=== PATIENT | female | born 2000 | race Caucasian/White ===

== ENCOUNTER → 2019-04-03 13:15 | Outpatient (BNVA) | payer BC, SELFPAY | PROVIDERS: Family Provider Pediatrics Adolescent Medicine; PCP Family Medicine; Visit Provider Nurse Practitioner Family | DX: J02.9 Acute pharyngitis, unspecified (principal); J01.10 Acute frontal sinusitis, unspecified | CPT/HCPCS: 87081; 87880 ==

== ENCOUNTER → 2019-12-07 10:50 | Outpatient (BNVA) | payer BC, SELFPAY | PROVIDERS: Family Provider Pediatrics Adolescent Medicine; PCP Family Medicine; Visit Provider Obstetrics & Gynecology | DX: N64.3 Galactorrhea not associated with childbirth (principal) | CPT/HCPCS: 84146; 84443 ==

== ENCOUNTER 2021-04-17 02:08 | Inpatient (IN) | payer OTHER, SELFPAY ==
[2021-04-17] VITALS (8 sets, daily range): BP systolic 118–131; BP diastolic 62–86; PULSE 99–123; RESP 16–18; TEMP 37.1–39.3; O2SAT 97–100; BMI 26.6
--- NOTE | 2021-04-17 02:53 | XRR_ITS ---
PROCEDURE INFORMATION: Exam: XR Chest Exam date and time: 04/17/2021 2:53 AM Age: 20 years old Clinical indication: Fever; Additional info: Fever, leukopenia TECHNIQUE: Imaging protocol: XR of the chest. Views: 1 view. COMPARISON: No relevant prior studies available. FINDINGS: Lungs: No CHF/pulmonary edema. Visible lungs appear essentially clear. Pleural spaces: No visible pneumothorax. No definite pleural fluid. Heart/Mediastinum: Heart size is within normal limits. Bones/joints: No significant acute finding. XR/XR chest 1V portable [id number] IMPRESSION: 1. Essentially unremarkable single view chest. 2. Other findings discussed above.
[2021-04-17 03:25] LABS: Basophils % 0.7 %; Eosinophils # 0.1 10^3/uL (0.0-0.8); Eosinophils % 9.6 %; Hematocrit 34.3 % (37.0-47.0); Hemoglobin 11.3 g/dL (11.5-15.3); Lymphocytes # 1.1 10^3/uL (0.8-4.8); Lymphocytes % 79.3 %; Mean Corpuscular HGB Conc 32.9 g/dL (30.0-36.0); Mean Corpuscular Hemoglobin 27.5 pg (28.0-34.0); Mean Corpuscular Volume 83.5 fl (81-99); Mean Platelet Volume 9.4 fL (7.4-10.4); Monocytes # 0.1 10^3/uL (0.2-0.9); Monocytes % 8.9 %; Neutrophils % 1.5 %; Nucleated Red Blood Cells % 0 %; Platelet Count 148 10^3/cmm (130-400); Red Blood Count 4.11 10^6/uL (4.1-5.3); Red Cell Distribution Width 16.3 % (12.1-15.1); White Blood Count 1.4 10^3/uL (4.0-10.0)
[2021-04-17 03:28] LABS: Neutrophils # 0.02 10^3/uL (1.8-7.7)
[2021-04-17 03:44] LABS: HCG, Serum Qual Negative (Negative)
[2021-04-17] MEDS: piperacillin-tazobactam 3.375 GM in sodium chloride 0.9% (plus) 50 ML IV ×2 (03:44→10:44)
[2021-04-17] MEDS: sodium chloride 0.9% 1,000 ML 999 ML IV (03:44)
--- NOTE | 2021-04-17 03:44 | W.ED.FEVER ---
HPI - Fever General: Chief Complaint: Fever Stated Complaint: 14 Last Day Chemo\High Fever 102 Time Seen by Provider: 04/17/21 02:23 History of Present Illness: HPI Narrative: 20-year-old female who was on methotrexate recently for molar . She has had problems with neutropenia following. She presents with a fever. She says she felt well yesterday, but last night began to run a temperature. Temp was as high as 102. No other real symptoms. She was told if she had a fever given her neutropenia to be evaluated in the ER. MD elicited complaint: fever Pertinent past history: immunosuppression Onset (ago): hour(s) Associated symptoms: Reports chills; Deny abdominal pain, flank pain, chest pain, cough, diarrhea, headache(s), rash, rhinorrhea, short of breath, sore throat or vomiting Review of Systems Const: Reports: chills Card: Denies: chest pain Resp: Denies: dyspnea, productive cough or non-productive cough GI: Denies: abdominal pain, vomiting or diarrhea : Denies: flank pain Neuro: Denies: headache(s) PFSH ED PFSH: Surgical History History of wisdom tooth extraction (~2018) Family History Grandfather Diabetes maternal Social History Smoking and tobacco status: never smoked Alcohol intake: never Physical Exam Const: GENERAL APPEARANCE: cooperative and comfortable; not frail appearing HENMT: COMMON NORMALS: normocephalic and atraumatic HEAD & SCALP: normocephalic and atraumatic FACE & SINUS: normal facial exam Eye: COMMON NORMALS: Equal, round and reactive pupils present and EOMs intact bilaterally PUPIL: Yes Equal, round and reactive pupils present Chest: COMMONS NORMALS: normal inspection of the chest Resp: COMMON NORMALS: normal respiratory effort, No retractions and clear to auscultation bilaterally AUSCULTATION: clear to auscultation bilaterally Cardio: COMMON NORMALS: regular rate and regular rhythm RATE: regular rate RHYTHM: regular rhythm GI: COMMON NORMALS: Normal to inspection, nondistended, normoactive bowel sounds present, Soft to palpation and non-tender PALPATION: Yes Soft to palpation Skin: COMMON NORMALS: no rashes or lesions noted GENERAL SKIN EXAM: no rashes or lesions noted Course Consultations: Consultation #1: Anuj Vital Signs: Vital signs: Vital Signs Temperature 99.8 F H 04/18/21 21:53 Pulse Rate 117 H 04/18/21 21:53 Respiratory Rate 18 04/18/21 21:53 Blood Pressure 112/74 04/18/21 21:53 Pulse Oximetry 99 04/18/21 21:53 MDM - Fever MDM Narrative Medical decision making narrative: ANC is 0.02. Temp is improved at this point. Covid 19 PCR is negative. Essentially normal exam. Laboratory otherwise stable. Blood cultures pending. She'll have to be admitted for broad spectrum abx for neutropenic fever until bc are resulted. Hospitalists notified. Lab Data Result diagrams: 04/18/21 04:58 04/18/21 04:58 Labs: Lab Results 04/17/21 04/17/21 04/17/21 03:15 03:15 03:15 WBC 1.4 10^3/uL L 10^3/uL (4.0-10.0) RBC 4.11 10^6/uL 10^6/uL (4.1-5.3) Hgb 11.3 g/dL L g/dL (11.5-15.3) Hct 34.3 % L % (37.0-47.0) MCV 83.5 fl fl (81-99) MCH 27.5 pg L pg (28.0-34.0) MCHC 32.9 g/dL g/dL (30.0-36.0) RDW 16.3 % H % (12.1-15.1) Plt Count 148 10^3/cmm 10^3/cmm (130-400) MPV 9.4 fL fL (7.4-10.4) Neut % (Auto) 1.5 % % Lymph % (Auto) 79.3 % % [place] % (Auto) 8.9 % % Eos % (Auto) 9.6 % % Baso % (Auto) 0.7 % % Neut # (Auto) 0.02 10^3/uL L* 10^3/uL (1.8-7.7) Lymph # (Auto) 1.1 10^3/uL 10^3/uL (0.8-4.8) [place] # (Auto) 0.1 10^3/uL L 10^3/uL (0.2-0.9) Eos # (Auto) 0.1 10^3/uL 10^3/uL (0.0-0.8) Baso # (Auto) 0.0 10^3/uL 10^3/uL (0.0-0.1) Nucleated RBC % (auto) 0 % % Nucleated RBCs # 0.0 /100WBC /100WBC Sodium 137 mmol/L mmol/L (136-145) Potassium 3.5 mmol/L mmol/L (3.5-5.1) Chloride 100 mmol/L mmol/L (98-107) Carbon Dioxide 22 mmol/L mmol/L (22-29) Anion Gap 18.5 (5-19) BUN 5 mg/dL L mg/dL (6-20) Creatinine 0.9 mg/dL mg/dL (0.5-0.9) GFR Calculation 79.0 mL/min L mL/min (90-130) Glucose 100 mg/dL mg/dL (65-115) Calculated Osmolality 281 mOsm/kg L mOsm/kg (285-295) Lactate 1.4 mmol/L mmol/L (0.5-2.2) Calcium 9.0 mg/dL mg/dL (8.5-10.5) Total Bilirubin 0.7 mg/dL mg/dL (0.15-1.2) AST 11 U/L U/L (0-32) ALT 15 U/L U/L (0-33) Alkaline Phosphatase 110 IU/L H IU/L (35-105) C-Reactive Protein 52.6 mg/L H mg/L (0.0-4.9) Total Protein 6.8 g/dL g/dL (6.6-8.7) Albumin 4.3 g/dL g/dL (3.5-5.2) Globulin 2.5 g/dL g/dL (1.3-4.6) Procalcitonin 0.05 ng/mL ng/mL (0-0.5) HCG, Qual Urine Color Urine Appearance Urine pH Ur Specific Welch Urine Protein Urine Glucose (UA) Urine Ketones Urine Blood Urine Nitrate Urine Bilirubin Urine Urobilinogen Ur Leukocyte Esterase Urine RBC Urine WBC Ur Squamous Epith Cells Amorphous Sediment Urine Bacteria Urine Mucus Coronavirus 229E (PCR) SARS-CoV-2 (PCR) 04/17/21 04/17/21 04/17/21 03:15 03:15 03:45 WBC RBC Hgb Hct MCV MCH MCHC RDW Plt Count MPV Neut % (Auto) Lymph % (Auto) [place] % (Auto) Eos % (Auto) Baso % (Auto) Neut # (Auto) Lymph # (Auto) [place] # (Auto) Eos # (Auto) Baso # (Auto) Nucleated RBC % (auto) Nucleated RBCs # Sodium Potassium Chloride Carbon Dioxide Anion Gap BUN Creatinine GFR Calculation Glucose Calculated Osmolality Lactate Calcium Total Bilirubin AST ALT Alkaline Phosphatase C-Reactive Protein Total Protein Albumin Globulin Procalcitonin HCG, Qual Negative (Negative) Urine Color Yellow (Yellow) Urine Appearance Sl hazy (CLEAR) Urine pH 7 (5-7) Ur Specific Welch 1.015 (1.005-1.030) Urine Protein Neg (Negative) Urine Glucose (UA) Norm (Normal) Urine Ketones 1+ H (Negative) Urine Blood 3+ H (Negative) Urine Nitrate Negative (Negative) Urine Bilirubin Neg (Negative) Urine Urobilinogen Norm mg/dL mg/dL (Negative) Ur Leukocyte Esterase Negative (Negative) Urine RBC 10-15 /hpf H /hpf (0-2) Urine WBC 0-4 /hpf H /hpf (0-5) Ur Squamous Epith Cells 25-40 /hpf H /hpf (0-5) Amorphous Sediment Not Reportable Urine Bacteria 4+ /hpf H /hpf (NONE) Urine Mucus 4+ /hpf /hpf Coronavirus 229E (PCR) Not detected (NOT DETECT) SARS-CoV-2 (PCR) Not detected (NOT DETECT) Discharge Plan Discharge Patient Disposition: Admitted As Inpatient Admit Provider: Prateek Verma Clinical Impression: Neutropenic fever Condition: Stable Coding Level of Care Code ED Cell Stripper Final for Kehindeg Fwd Exam Comprehensive
[2021-04-17 03:47] LABS: Alanine Aminotransferase 15 U/L (0-33); Albumin Level 4.3 g/dL (3.5-5.2); Alkaline Phosphatase 110 IU/L (35-105); Anion Gap 18.5 (5-19); Aspartate Amino Transferase 11 U/L (0-32); Blood Urea Nitrogen 5 mg/dL (6-20); C Reactive Protein 52.6 mg/L (0.0-4.9); Carbon Dioxide 22 mmol/L (22-29); Chloride 100 mmol/L (98-107); Globulin 2.5 g/dL (1.3-4.6); Glucose 100 mg/dL (65-115); Osmolality Calculated 281 mOsm/kg (285-295); Potassium 3.5 mmol/L (3.5-5.1); Sodium 137 mmol/L (136-145); Total Bilirubin 0.7 mg/dL (0.15-1.2); Total Protein 6.8 g/dL (6.6-8.7)
[2021-04-17 03:48] LABS: Lactate (Lactic Acid level) 1.4 mmol/L (0.5-2.2)
[2021-04-17 03:53] LABS: Procalcitonin 0.05 ng/mL (0-0.5)
[2021-04-17 04:06] LABS: Add Urine Microscopic? YES; Bilirubin Urine Neg (Negative); Blood Urine 3+ (Negative); Glucose Urine UA Norm (Normal); Ketones Urine 1+ (Negative); Leukocyte Esterase Urine Negative (Negative); Nitrate Urine Negative (Negative); Protein Urine Neg (Negative); Specific Gravity, Urine 1.015 (1.005-1.030); Urine Appearance SL Hazy (CLEAR); Urine Color Yellow (Yellow); Urobilinogen Urine Norm (Negative); pH Urine 7 (5-7)
[2021-04-17 04:09] LABS: Add Urine Culture? No; Bacteria Urine 4+ /hpf; Mucus Urine 4+ /hpf; Squamous Epithelial Cell Urine 25-40 /hpf (0-5); WBC Urine 0-4 /hpf (0-5)
[2021-04-17 05:05] LABS: Adenovirus Not Detected (NOT DETECT); Chlamydia Pneumoniae Not Detected (NOT DETECT); Coronavirus 229E,HKU1,NL63,OC4 Not Detected (NOT DETECT); Human Metapneumovirus Not Detected (NOT DETECT); Human Rhinovirus/Enterovirus Not Detected (NOT DETECT); Influenza A Not Detected (NOT DETECT); Influenza A H1 Not Detected (NOT DETECT); Influenza A H1-2009 Not Detected (NOT DETECT); Influenza A H3 Not Detected (NOT DETECT); Influenza B Not Detected (NOT DETECT); Mycoplasma Pneumoniae Not Detected (NOT DETECT); Parainfluenza Virus Type 1 Not Detected (NOT DETECT); Parainfluenza Virus Type 2 Not Detected (NOT DETECT); Parainfluenza Virus Type 3 Not Detected (NOT DETECT); Parainfluenza Virus Type 4 Not Detected (NOT DETECT); Respiratory Syncytial Virus A Not Detected (NOT DETECT); Respiratory Syncytial Virus B Not Detected (NOT DETECT); SARS-COV-2 Not Detected (NOT DETECT)
[2021-04-17] MEDS: vancomycin 1,000 MG in sodium chloride 0.9% 250 ML 250 MG IV (06:09)
[2021-04-17] MEDS: diphenhydrAMINE 50 mg/mL SDV 1mL 25 MG IVP (07:17)
[2021-04-17] MEDS: sodium chloride 0.9% 1,000 ML 100 ML IV ×2 (07:18→17:58)
--- NOTE | 2021-04-17 07:19 | US_ITS ---
NOTE: Report was unsigned for reason: Order was edited. Original Signature date and time was: 04/17/21 @0824 WS: [id number] TRANSVAGINAL PELVIC ULTRASOUND HISTORY: molar COMPARISON: None available. Uterus: 7.6 cm x 4.1 cm x 3.2 cm. Normal size anteverted uterus. No fibroid or mass. Endometrium: 0.6 cm. Normal thin endometrium. Right ovary: 3.5 cm x 2.1 cm x 1.6 cm. Normal size and vascularity, no cystic or solid masses. Numerous small follicles within the RIGHT ovary. The largest measures 2.0 maximum diameter. Left ovary: 2.7 cm x 2.4 cm x 1.5 cm. Normal size and vascularity, no cystic or solid masses. Numerous small follicles. No mass. No free fluid. [facility] US/US transvaginal [id number] IMPRESSION: Normal transvaginal pelvic ultrasound.
--- NOTE | 2021-04-17 07:20 | PC.NURSE ---
NURSE NOTIFIED THAT PATIENT FEELS LIKE SHE IS HAVING AN ALLERGIC REACTION TO VANC. NURSE ENTERED ROOM AND VANC WAS FINISHED. PATIENT DISCONNECTED FROM LINE. PROVIDER NOTIFIED. BENADRYL ORDERED.
--- NOTE | 2021-04-17 10:48 | P.HP_ITS ---
Providers/Chief Complaint Chief Complaint: 14 Last Day Chemo\High Fever 102 History of Present Illness Nata Huff is a 20 year old female who presents to ER for fever. PMH is significant for molar for which she recently completed 7 weeks of chemo for on 04/07/21 and is now neutropenic. She resides in [place] and arrived to [place] via car yesterday to visit family. Her fever started around 9pm last night and was 101.4 and got as high as 102. She did not try any anti-pyretics for the fever. She states that she felt some chills last night before her fever started. She felt tired this morning but otherwise denies chest pain, SOB, abdominal pain, cough, diarrhea, constipation, or dysuria. She endorses some sore throat but states that is due to mouth sores from chemo. She states she has been eating less and taking only a few sips of water lately. In the ER today, temp was 99.3. Heart rate was tachycardic. She was given one dose of Vanc and one dose of Zosyn in the ER. CXR and pelvic U/S were unremarkable. She is vaccinated against COVID and denies past history of COVID or recent COVID contacts. Review of Systems General: Reports: 10 or more systems reviewed and unremarkable except in HPI and below Const: Reports: fever(s) and chills Eyes: Denies: change in vision ENMT: Reports: oral sores Card: Denies: chest pain Resp: Denies: dyspnea GI: Denies: abdominal pain : Denies: flank pain Musc: Denies: neck pain Skin/Breast: Denies: rash Neuro: Denies: headache(s) Psych: Denies: anxiety Endo: Denies: polyuria Rogelio/Lymph: Denies: easy bruising All/Imm: Denies: urticaria Medications/Allergies Home Medications Medication Instructions Recorded Confirmed Last Taken Type etonogestrel 0.12 mg-ethinyl 1 vag ring VAGINAL .once every 28 12/07/19 12/07/19 Unknown Rx estradiol 0.015 mg/24 hr vaginal days #1 each ring Allergies Allergy/AdvReac Type Severity Reaction Status Date / Time No Known Allergies Allergy Verified 12/07/19 10:21 PFSH Acute PFSH: Surgical History History of wisdom tooth extraction (~2018) Family History Grandfather Diabetes maternal Social History Smoking and tobacco status: never smoked Alcohol intake: never Vitals/I&O/Wt Last Vital Signs Temp 99.3 F 04/17/21 06:30 Pulse 113 H 04/17/21 10:45 Resp 18 04/17/21 10:45 BP 123/66 04/17/21 10:45 Pulse Ox 100 04/17/21 10:45 04/16/21 04/17/21 04/17/21 22:59 06:59 14:59 Intake Total 1300 / 1300 Balance 1300 / 1300 Weight last 48 hrs Weight 74.843 kg Physical Exam Narrative: EXAM NARRATIVE: General: white female in no acute distress HEENT: normocephalic, atraumatic, pupils equally round Neck: supple, no lymphadenopathy, no thyromegaly, oral sores present Cardiovascular: RRR without murmurs Lungs: clear bilaterally, no wheezes Abdomen: soft, nontender, nondistended, positive bowel sounds deferred Extremities: no cyanosis, clubbing, or edema Skin: no rash Neuro: no obvious focal deficits Data : 04/17/21 03:15 04/17/21 03:15 Micro: Microbiology 04/17/21 03:15 Blood Culture - Preliminary Blood SPECIMEN COLLECTED 04/17/21 03:45 Blood Culture - Preliminary Blood SPECIMEN COLLECTED Other data: CRP 52.6 WBC 1.4 with ANC 0.02 CXR and pelvic U/S unremarkable Qualitative HCG negative Procalcitonin normal UA 1+ ketones, 3+ blood, 10-15 RBC, 0-4 WBC, 4+ bacteria, 25-40 SEC. Suspect likely contaminant COVID PCR negative A&P Assessment and plan (1) Neutropenic fever: Continue vancomycin and Zosyn Blood cultures were drawn on admission Transvaginal pelvic ultrasound was normal, chest x-ray normal, urinalysis contaminated but no obvious infection Etiology is likely methotrexate she was on. From history it appears she got 7 doses of methotrexate with the last being 10 to 11 days ago. We will give 1 dose of Neupogen Continue to follow counts closely, repeat tomorrow Regular admission Status: Acute (2) Molar : Qualitative hCG negative, transvaginal pelvic ultrasound normal. I suspect she has completed an adequate treatment for her molar . Gynecology will review as well. Status: Acute Additional A&P Information Full code Low risk for DVT Attestations Medical Necessity Statement*: Will need greater than 2 midnight stay for evaluation and treatment of neutropenic fever Time Spent in Patient Care: Greater than 35 minutes Coding Level of Care Code Acute Concrete Handler for [facility] Diagnoses Neutropenic fever D70.9; R50.81 Molar O02.0
--- NOTE | 2021-04-17 12:00 | PC.PHAR ---
pt states she she takes no rx medications-pt states she has been using magic mouthwash prn-pt states she was taking some kind of chemo states she started taking dec 31 2020 to apr 07 2021 states she finished on the
--- NOTE | 2021-04-17 12:54 | PC.NURSE ---
PATIENT ONLY HAD ONE AVAILABLE IV ACCESS. THIS NURSE, NURSE RESIDENT, AND SECOND NURSE TRIED TO ACCESS 2ND IV. PATIENT REFUSED FOR NURSES TO TRY AGAIN. PATIENT CURRENTLY HAS 2 SEPARATE FLUIDS RUNNING THRU ACCESSED IV.
[2021-04-17] MEDS: cefepime 2,000 MG in sodium chloride 0.9% (plus) 50 ML 100 MG IV (12:58)
--- NOTE | 2021-04-17 14:33 | PC.NURSE ---
PATIENT RESTING IN BED. VISITOR STATED SHE HAD JUST FALLEN ASLEEP.
--- NOTE | 2021-04-17 17:36 | PC.NURSE ---
publications writer went over meds with patient that were scheduled. publications writer told patient that she has vancomycin scheduled for 1800. patient said she is very hesitant to take that med because it made her red and she had swelling in her face from it. 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 patient currently has some swelling noted to bilateral eyes. Sales Product Manager notified Dr Verma, per Dr Verma, discontinue vancomycin order.
[2021-04-17] MEDS: cefepime 2,000 MG in sodium chloride 0.9% (plus) 50 ML 200 MG IV (19:55)
[2021-04-17] MEDS: acetaminophen 325 mg Tablet 650 MG PO (19:56)
--- NOTE | 2021-04-17 21:55 | PC.NURSE ---
i reported high temp and high pulse 102.7 and 120 to nurse
--- NOTE | 2021-04-17 23:07 | PC.NURSE ---
1930 Family at bedside visiting. No facial edema or redness as noted in report from off going nurse. Nurse said it was improving after Vancomycin was given earlier today.
--- NOTE | 2021-04-17 23:09 | PC.NURSE ---
2130 Pt up to shower without difficulty per self. IV secured for shower. Tolerates well. No distress.
--- NOTE | 2021-04-17 23:10 | PC.NURSE ---
2215 Milk given per pt request.
[2021-04-18] VITALS (7 sets, daily range): BP systolic 108–138; BP diastolic 60–84; PULSE 107–124; RESP 15–18; TEMP 36.8–37.7; O2SAT 96–100
--- NOTE | 2021-04-18 00:03 | PC.NURSE ---
reported high pulse 108 to nurse
--- NOTE | 2021-04-18 01:17 | PC.NURSE ---
0115 Resting in bed on left side. No distress.
--- NOTE | 2021-04-18 02:20 | PC.NURSE ---
0215 Resting in bed. Turned to right side. No distress.
[2021-04-18] MEDS: cefepime 2,000 MG in sodium chloride 0.9% (plus) 50 ML 200 MG IV ×3 (02:51→21:43)
[2021-04-18] MEDS: sodium chloride 0.9% 1,000 ML 100 ML IV ×3 (05:00→21:43)
--- NOTE | 2021-04-18 05:41 | PC.NURSE ---
0400 Resting in bed. Easily arouses. No requests.
--- NOTE | 2021-04-18 05:42 | PC.NURSE ---
0530 Resting on left side. Denies pain. No requests.
--- NOTE | 2021-04-18 05:50 | PC.NURSE ---
i reported high pulse 124 to nurse
[2021-04-18 06:13] LABS: Basophils % 1.1 %; Eosinophils # 0.2 10^3/uL (0.0-0.8); Eosinophils % 8.2 %; Hemoglobin 10.6 g/dL (11.5-15.3); Lymphocytes # 1.1 10^3/uL (0.8-4.8); Mean Corpuscular HGB Conc 31.2 g/dL (30.0-36.0); Mean Corpuscular Hemoglobin 26.7 pg (28.0-34.0); Mean Corpuscular Volume 85.6 fl (81-99); Mean Platelet Volume 10.1 fL (7.4-10.4); Monocytes # 0.5 10^3/uL (0.2-0.9); Monocytes % 25.5 %; Neutrophils % 2.7 %; Nucleated Red Blood Cells % 0 %; Platelet Count 161 10^3/cmm (130-400); Red Blood Count 3.97 10^6/uL (4.1-5.3); Red Cell Distribution Width 15.8 % (12.1-15.1); White Blood Count 1.8 10^3/uL (4.0-10.0)
[2021-04-18 06:25] LABS: Alanine Aminotransferase 11 U/L (0-33); Albumin Level 3.5 g/dL (3.5-5.2); Alkaline Phosphatase 84 IU/L (35-105); Anion Gap 19.7 (5-19); Aspartate Amino Transferase 12 U/L (0-32); Blood Urea Nitrogen 6 mg/dL (6-20); Calcium 9.4 mg/dL (8.5-10.5); Carbon Dioxide 18 mmol/L (22-29); Chloride 106 mmol/L (98-107); Globulin 2.7 g/dL (1.3-4.6); Glucose 80 mg/dL (65-115); Osmolality Calculated 287 mOsm/kg (285-295); Potassium 3.7 mmol/L (3.5-5.1); Sodium 140 mmol/L (136-145); Total Bilirubin 0.8 mg/dL (0.15-1.2); Total Protein 6.2 g/dL (6.6-8.7)
[2021-04-18 08:39] LABS: Neutrophils # 0.05 10^3/uL (1.8-7.7); Slide Review Slide Review Perform
--- NOTE | 2021-04-18 09:14 | PM.PN ---
Documented by User: SHALOM Whittaker STDNT 04/18/21 09:25 Subjective Subjective: Interval history: Nata had some fever last night with elevated heart rate. She tells me that her heart rate would usually increase the week after she got each methotrexate dose when she would feel unwell, but she appears asymptomatic from this currently. She denies chest pain, fevers, chills, or SOB. Vitals/I&O/Wt Last Vital Signs Temp 98.5 F 04/18/21 08:58 Pulse 107 H 04/18/21 08:00 Resp 16 04/18/21 08:00 BP 108/71 04/18/21 08:00 Pulse Ox 96 04/18/21 08:00 04/17/21 04/18/21 04/18/21 22:59 06:59 14:59 Intake Total 1550 / 2850 1530 / 4380 240 / 240 Output Total 800 / 800 Balance 1550 / 2850 730 / 3580 240 / 240 Weight last 48 hrs Weight 73.028 kg Weight 74.843 kg Physical Exam Narrative: EXAM NARRATIVE: General: in no acute distress, pleasant HEENT: normocephalic, atraumatic, pupils equally round Neck: supple, no thyromegaly, no lymphadenopathy Cardiovascular: increased rate with regular rhythm, no murmurs Lungs: clear bilaterally, no wheezes Abdomen: soft, nondistended, nontender, positive bowel sounds Extremities: no cyanosis, clubbing, or edema Skin: no rash Neuro: no obvious focal deficits Data : 04/18/21 04:58 04/18/21 04:58 Other Labs: WBC 1.8 from 1.4 ANC 0.05 from 0.02 Blood cultures NGTD Micro: Microbiology 04/17/21 03:15 Blood Culture - Preliminary Blood NEGATIVE TO DATE 04/17/21 03:45 Blood Culture - Preliminary Blood NEGATIVE TO DATE A&P Assessment and plan (1) Neutropenic fever: Status: Acute (2) Molar : Status: Acute Plan (1) Neutropenic fever: ? ? ? Continue cefepime Blood cultures drawn on admission negative to date Transvaginal pelvic ultrasound was normal, chest x-ray normal, urinalysis contaminated but no obvious infection Etiology is likely methotrexate she was on.? From history it appears she got 7 doses of methotrexate with the last dose on 04/07/21. 1 dose of 300mcg Neupogen given yesterday. ANC increased from 0.02 to 0.05. 1 dose of 480mcg Neupogen will be given today. Continue to follow counts closely, repeat tomorrow Regular admission ?Status:?Acute (2) Molar : ? ? ? Qualitative hCG negative, transvaginal pelvic ultrasound normal.? I suspect she has completed an adequate treatment for her molar .? Gynecology will review as well. ?Status:?Acute Full code Low risk for DVT Coding Level of Care Code Acute Med Spa Manager for [facility] Diagnoses Neutropenic fever D70.9; R50.81 Molar O02.0 Documented by User: Prateek Verma MD 04/18/21 12:45 Subjective Subjective: Interval history: Nata had some fever last night with elevated heart rate. She tells me that her heart rate would usually increase the week after she got each methotrexate dose when she would feel unwell, but she appears asymptomatic from this currently. She denies chest pain, fevers, chills, or SOB. Agree with above. No changes needed. Medications: Reviewed: Yes Physical Exam Narrative: EXAM NARRATIVE: General: in no acute distress, pleasant HEENT: normocephalic, atraumatic, pupils equally round Neck: supple, no thyromegaly, no lymphadenopathy Cardiovascular: increased rate with regular rhythm, no murmurs Lungs: clear bilaterally, no wheezes Abdomen: soft, nondistended, nontender, positive bowel sounds Extremities: no cyanosis, clubbing, or edema Skin: no rash Neuro: no obvious focal deficits I examined the patient as well. No changes are needed as noted above. Data : 04/18/21 04:58 04/18/21 04:58 A&P Assessment and plan (1) Neutropenic fever: Status: Acute (2) Molar : Status: Acute Plan (1) Neutropenic fever: ? ? ? Continue cefepime Blood cultures drawn on admission negative to date Transvaginal pelvic ultrasound was normal, chest x-ray normal, urinalysis contaminated but no obvious infection Etiology is likely methotrexate she was on.? From history it appears she got 7 doses of methotrexate with the last dose on 04/07/21. 1 dose of 300mcg Neupogen given yesterday. ANC increased from 0.02 to 0.05. 1 dose of 480mcg Neupogen will be given today. Appreciate gynecologic review/consult Continue to follow counts closely, repeat tomorrow Regular admission ?Status:?Acute (2) Molar : ? ? ? Qualitative hCG negative, transvaginal pelvic ultrasound normal.? I suspect she has completed an adequate treatment for her molar .? Gynecology will review as well. ?Status:?Acute Full code Low risk for DVT Attestations Medical Necessity Statement*: Needs continued hospitalization for broad-spectrum antibiotics in this patient with neutropenic fever. Coding Level of Care Code Acute Med Spa Manager for [facility] Diagnoses Neutropenic fever D70.9; R50.81 Molar O02.0
--- NOTE | 2021-04-18 10:09 | PM.CONSULT ---
Providers/Reason For Consult Consulting Physician/Specialty*: Dr Rice/ ENVIRONMENTAL MAINTENANCE WORKER Reason for Consult*: history of choriocarcinoma Requesting Physician: Dr. Bradley Attending Physician: Prateek Verma MD History of Present Illness History of Present Illness Nata Huff is a 20 year old female who presented to the ER with complaints of fever and known neutropenia. She reports that she became around 11/12. She was found to have a molar . She had a D&C and serial quant HCG. Her HCG had a katie of 60, but then began rising again. She had a second D&C, but the HCG continued to rise. She was given the diagnosis of persistent trophoblastic disease (choriocarcinoma) and was started on methotrexate in November. She had a nexplanon placed for effective contraception. She received IV infusions, five days per week, every other week, for 7 doses. She reports that after her last treatment, there was a remark made by an employee, that they were surprised that she was given chemo, due to how low her neutrophil count was. Review of Systems General: Reports: 10 or more systems reviewed and unremarkable except in HPI and below Medications/Allergies Home Medications Medication Instructions Recorded Confirmed Last Taken Type Magic Mouthwash See Rx Instructions .ROUTE .COMPLEX 04/17/21 04/17/21 04/16/21 History etonogestrel 68 mg subdermal See Rx Instructions .ROUTE .COMPLEX 04/17/21 04/17/21 Unknown History implant (Nexplanon) Allergies Allergy/AdvReac Type Severity Reaction Status Date / Time No Known Allergies Allergy Verified 04/17/21 12:02 Current Medications Generic Name Dose Route Start Last Admin Trade Name Freq PRN Reason Stop Dose Admin Acetaminophen 650 mg 04/17/21 11:41 04/17/21 19:56 Acetaminophen 325 Mg Tablet PO 650 mg Q6H PRN Administration Mild/Mod Pain Or Temp >/= 101 Sodium Chloride 1,000 mls @ 125 mls/hr 04/17/21 07:04 04/18/21 05:00 Sodium Chloride 0.9% IV 100 mls/hr .Q8H CORTNEY Administration Cefepime HCl 2,000 mg/ Sodium 50 mls @ 100 mls/hr 04/17/21 11:45 04/18/21 03:06 Chloride IV Infused Q8H CORTNEY Infusion Protocol PFSH Acute PFSH: Surgical History History of wisdom tooth extraction (~2018) Family History Grandfather Diabetes maternal Social History Smoking and tobacco status: never smoked Alcohol intake: never Vitals/I&O/Wt Last Vital Signs Temp 98.5 F 04/18/21 08:58 Pulse 107 H 04/18/21 08:00 Resp 16 04/18/21 08:00 BP 108/71 04/18/21 08:00 Pulse Ox 96 04/18/21 08:00 04/17/21 04/18/21 04/18/21 22:59 06:59 14:59 Intake Total 1550 / 2850 1530 / 4380 480 / 480 Output Total 800 / 800 Balance 1550 / 2850 730 / 3580 480 / 480 Weight last 48 hrs Weight 161 lb Weight 165 lb Physical Exam Narrative: EXAM NARRATIVE: The patient appears well today. She states that she is feeling better Const: COMMON NORMALS: no acute distress, average body habitus, patient oriented x3, no limitations, healthy appearing, alert and well nourished GENERAL APPEARANCE: cooperative, comfortable, well kempt and well developed ORIENTATION/CONSCIOUSNESS: Yes awake, Yes oriented to person, Yes oriented to place and Yes oriented to time Resp: COMMON NORMALS: normal respiratory effort EFFORT & INSPECTION: Yes able to speak in complete sentences Neuro: COMMON NORMALS: patient oriented x3 SENSORIUM/ORIENTATION: Yes alert, Yes oriented to person, Yes oriented to place and Yes oriented to time Psych: COMMON NORMALS: mental status grossly normal, Normal thought process present, cooperative, normal affect, speech normal and activity/motor behavior normal APPEARANCE: Yes grossly normal and Yes well kempt ATTITUDE: Yes calm and Yes engaged ACTIVITY/MOTOR BEHAVIOR: Yes appropriate eye contact SPEECH: Yes normal speech THOUGHT PROCESS: Normal thought process present Data : 04/18/21 04:58 04/18/21 04:58 Micro: Microbiology 04/17/21 03:15 Blood Culture - Preliminary Blood NEGATIVE TO DATE 04/17/21 03:45 Blood Culture - Preliminary Blood NEGATIVE TO DATE A&P Assessment and plan (1) Gestational trophoblastic disease: The patient is being managed by hematology. Her HCG is now zero her pelvic ultrasound is normal The patient has an excellent form of contraception She should have twice monthly HCG to monitor treatment. Otherwise, there is nothing further needed from scene painter. Status: Acute Coding Level of Care Code Acute Health Professional for [facility] Diagnoses Gestational trophoblastic disease O01.9
[2021-04-19] VITALS: BP 115/75; PULSE 100; RESP 18; TEMP 37.5; O2SAT 98
[2021-04-19 04:00] VITALS: BP 104/64; PULSE 96; RESP 18; TEMP 37.2; O2SAT 97
[2021-04-19] MEDS: cefepime 2,000 MG in sodium chloride 0.9% (plus) 50 ML 200 MG IV (04:58)
[2021-04-19] MEDS: sodium chloride 0.9% 1,000 ML 125 ML IV (05:04)
[2021-04-19 05:31] LABS: Hematocrit 31.3 % (37.0-47.0); Mean Corpuscular HGB Conc 31.9 g/dL (30.0-36.0); Mean Corpuscular Volume 84.4 fl (81-99); Platelet Count 272 10^3/cmm (130-400); Red Blood Count 3.71 10^6/uL (4.1-5.3); Red Cell Distribution Width 15.7 % (12.1-15.1); White Blood Count 3.9 10^3/uL (4.0-10.0)
[2021-04-19 05:52] LABS: Alanine Aminotransferase 10 U/L (0-33); Albumin Level 3.2 g/dL (3.5-5.2); Alkaline Phosphatase 75 IU/L (35-105); Anion Gap 15.6 (5-19); Aspartate Amino Transferase 14 U/L (0-32); Blood Urea Nitrogen 4 mg/dL (6-20); Calcium 8.2 mg/dL (8.5-10.5); Carbon Dioxide 20 mmol/L (22-29); Chloride 108 mmol/L (98-107); Globulin 2.2 g/dL (1.3-4.6); Glucose 75 mg/dL (65-115); Osmolality Calculated 286 mOsm/kg (285-295); Potassium 3.6 mmol/L (3.5-5.1); Sodium 140 mmol/L (136-145); Total Bilirubin 0.5 mg/dL (0.15-1.2); Total Protein 5.4 g/dL (6.6-8.7)
[2021-04-19 06:55] LABS: Absolute Eosinophils 0.1 10^3/cmm (0.0-0.7); Absolute Segmented Neutrophil 0.4 10/cmm (1.6-7.1); Band Neutrophils Absolute 0.5 10^3/cmm (0.0-1.2); Eosinophils 4 %; Lymphocytes 47 %; Monocytes Absolute 0.5 10^3/cmm (0.1-0.6); Poikilocytosis 1+; Segmented Neutrophils 9 %; Total Cells Counted 100 (0-100)
[2021-04-19 06:56] LABS: Platelet Estimate Normal (Normal)
[2021-04-19 06:57] LABS: Absolute Neutrophil 0.9 10^3/cmm (1.4-6.5)
[2021-04-19 07:46] VITALS: BP 108/69; PULSE 99; RESP 16; TEMP 37; O2SAT 97
--- NOTE | 2021-04-19 10:15 | P.DS_ITS ---
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 She presented with fever, and was found to be significantly neutropenic. According to her she had had some significantly low white blood cell counts while she was receiving methotrexate, and her last methotrexate course was April 07. Although she had fever she had not had cough, dysuria, or any other significant symptoms. Blood cultures were obtained, and she was placed on broad-spectrum antibiotics, ultimately cefepime and admitted to the hospital. Urinalysis, chest x-ray were not revealing. Procalcitonin was normal. Initial neutrophil count was 20. She received Neupogen 2 days in a row, and neutrophil count climbed to approximately 900. She had been afebrile for greater than 24 hours, and it was thought she could be discharged on 5 days of Levaquin with close follow-up. She is to return for any fever. Cultures were negative at time of discharge. Physical Exam Narrative: EXAM NARRATIVE: General exam no distress Neck supple Cardiovascular regular rate and rhythm Lungs clear Abdomen soft Extremities no cyanosis clubbing or edema Discharge Data Studies Completed and Pending Completed Studies During Hospitalization Category Date Time Status XR chest 1V portable [id number] Urgent Exams 04/17/21 02:53 Completed US transvaginal [id number] Stat Ultrasound 04/17/21 07:19 Completed Pending at discharge Category Date Time Status Blood Culture Stat Lab 04/17/21 03:15 Results Radiology Impressions Chest X-Ray 04/17/21 02:53 IMPRESSION: 1. Essentially unremarkable single view chest. 2. Other findings discussed above. Transvaginal US 04/17/21 07:19 IMPRESSION: Normal transvaginal pelvic ultrasound. Laboratory Results WBC 3.9 10^3/uL (4.0-10.0) L 04/19/21 04:23 RBC 3.71 10^6/uL (4.1-5.3) L 04/19/21 04:23 Hgb 10.0 g/dL (11.5-15.3) L 04/19/21 04:23 Hct 31.3 % (37.0-47.0) L 04/19/21 04:23 MCV 84.4 fl (81-99) 04/19/21 04:23 MCH 27.0 pg (28.0-34.0) L 04/19/21 04:23 MCHC 31.9 g/dL (30.0-36.0) 04/19/21 04:23 RDW 15.7 % (12.1-15.1) H 04/19/21 04:23 Plt Count 272 10^3/cmm (130-400) D 04/19/21 04:23 MPV 10.0 fL (7.4-10.4) 04/19/21 04:23 Neut % (Auto) 2.7 % 04/18/21 04:58 Lymph % (Auto) Not Reportable 04/19/21 04:23 [place] % (Auto) Not Reportable 04/19/21 04:23 Eos % (Auto) 8.2 % 04/18/21 04:58 Baso % (Auto) 1.1 % 04/18/21 04:58 Neut # (Auto) Sugar Controller 04/19/21 04:23 Lymph # (Auto) Not Reportable 04/19/21 04:23 [place] # (Auto) Not Reportable 04/19/21 04:23 Eos # (Auto) 0.2 10^3/uL (0.0-0.8) 04/18/21 04:58 Baso # (Auto) 0.0 10^3/uL (0.0-0.1) 04/18/21 04:58 Nucleated RBC % (auto) 0 % 04/18/21 04:58 Total Counted 100 (0-100) 04/19/21 04:23 Atypical Lymphs % 5.0 % (0-5) 04/19/21 04:23 Absolute Neutrophils 0.9 10^3/cmm (1.4-6.5) L 04/19/21 04:23 Segmented Neutrophils 9 % 04/19/21 04:23 Abs Segm Neuts (Man) 0.4 10/cmm (1.6-7.1) L 04/19/21 04:23 Band Neutrophils 13.0 % 04/19/21 04:23 Abs Band Neuts (Man) 0.5 10^3/cmm (0.0-1.2) 04/19/21 04:23 Absolute Lymphocytes 2.0 10^3/cmm (1.2-3.4) 04/19/21 04:23 Lymphocytes (Manual) 47 % 04/19/21 04:23 Monocytes (Manual) 12.0 % 04/19/21 04:23 Absolute Monocytes 0.5 10^3/cmm (0.1-0.6) 04/19/21 04:23 Eosinophils (Manual) 4 % 04/19/21 04:23 Absolute Eosinophils 0.1 10^3/cmm (0.0-0.7) 04/19/21 04:23 Basophils (Manual) 1.0 % 04/19/21 04:23 Absolute Basophils 0.0 10^3/cmm (0.0-0.2) 04/19/21 04:23 Metamyelocytes 4.0 % 04/19/21 04:23 Myelocytes 5.0 % 04/19/21 04:23 Nucleated RBCs # 0.0 /100WBC 04/18/21 04:58 Platelet Estimate Normal (Normal) 04/19/21 04:23 Poikilocytosis 1+ H 04/19/21 04:23 Sodium 140 mmol/L (136-145) 04/19/21 04:23 Potassium 3.6 mmol/L (3.5-5.1) 04/19/21 04:23 Chloride 108 mmol/L (98-107) H 04/19/21 04:23 Carbon Dioxide 20 mmol/L (22-29) L 04/19/21 04:23 Anion Gap 15.6 (5-19) 04/19/21 04:23 BUN 4 mg/dL (6-20) L 04/19/21 04:23 Creatinine 1.0 mg/dL (0.5-0.9) H 04/19/21 04:23 GFR Calculation 70.0 mL/min (90-130) L 04/19/21 04:23 Glucose 75 mg/dL (65-115) 04/19/21 04:23 Calculated Osmolality 286 mOsm/kg (285-295) 04/19/21 04:23 Lactate 1.4 mmol/L (0.5-2.2) 04/17/21 03:15 Calcium 8.2 mg/dL (8.5-10.5) L 04/19/21 04:23 Total Bilirubin 0.5 mg/dL (0.15-1.2) 04/19/21 04:23 AST 14 U/L (0-32) 04/19/21 04:23 ALT 10 U/L (0-33) 04/19/21 04:23 Alkaline Phosphatase 75 IU/L (35-105) 04/19/21 04:23 C-Reactive Protein 52.6 mg/L (0.0-4.9) H 04/17/21 03:15 Total Protein 5.4 g/dL (6.6-8.7) L 04/19/21 04:23 Albumin 3.2 g/dL (3.5-5.2) L 04/19/21 04:23 Globulin 2.2 g/dL (1.3-4.6) 04/19/21 04:23 Procalcitonin 0.05 ng/mL (0-0.5) 04/17/21 03:15 HCG, Qual Negative (Negative) 04/17/21 03:15 Urine Color Yellow (Yellow) 04/17/21 03:45 Urine Appearance Sl hazy (CLEAR) 04/17/21 03:45 Urine pH 7 (5-7) 04/17/21 03:45 Ur Specific [place] 1.015 (1.005-1.030) 04/17/21 03:45 Urine Protein Neg (Negative) 04/17/21 03:45 Urine Glucose (UA) Norm (Normal) 04/17/21 03:45 Urine Ketones 1+ (Negative) H 04/17/21 03:45 Urine Blood 3+ (Negative) H 04/17/21 03:45 Urine Nitrate Negative (Negative) 04/17/21 03:45 Urine Bilirubin Neg (Negative) 04/17/21 03:45 Urine Urobilinogen Norm mg/dL (Negative) 04/17/21 03:45 Ur Leukocyte Esterase Negative (Negative) 04/17/21 03:45 Urine RBC 10-15 /hpf (0-2) H 04/17/21 03:45 Urine WBC 0-4 /hpf (0-5) H 04/17/21 03:45 Ur Squamous Epith Cells 25-40 /hpf (0-5) H 04/17/21 03:45 Amorphous Sediment Not Reportable 04/17/21 03:45 Urine Bacteria 4+ /hpf (NONE) H 04/17/21 03:45 Urine Mucus 4+ /hpf 04/17/21 03:45 Coronavirus 229E (PCR) Not detected (NOT DETECT) 04/17/21 03:15 SARS-CoV-2 (PCR) Not detected (NOT DETECT) 04/17/21 03:15 Vitals Last Vital Signs Temp 98.6 F 04/19/21 07:46 Pulse 99 04/19/21 07:46 Resp 16 04/19/21 07:46 BP 108/69 04/19/21 07:46 Pulse Ox 97 04/19/21 07:46 Discharge Plan Discharge Patient Disposition: Home Condition: Stable Prescriptions: New levofloxacin 750 mg tablet 750 mg PO DAILY 5 Days Qty: 5 0RF Continued Nexplanon 68 mg Implant See Rx Instructions .ROUTE .COMPLEX 0RF Rx Instructions: subdermally as directed Magic Mouthwash See Rx Instructions .ROUTE .COMPLEX 0RF Rx Instructions: as directed prn Discharge Orders: Discharge Order (Routine); Ordered 04/19/21 Ordered By: Prateek Verma Discharge Diet: Regular Discharge Activity: Increase activity as tolerated Patient Instructions: Opioid Safety Activity Restrictions/Additional Instructions: Keep regular follow-up regarding your gestational trophoblastic disease. Follow-up with primary care provider in 3 to 5 days with CBC on follow-up. Return for any fever, worsening Discharge Attestations Time Spent in Discharge Care*: greater than 30 min Quality Metrics Clinical Quality Measures [ No reported AMI, CVA or VTE this stay] Coding Level of Care Code Acute Chg FW DC note Diagnoses Neutropenic fever D70.9; R50.81 Molar O02.0
[2021-04-19 11:20] VITALS: BP 108/69; PULSE 99; RESP 16; TEMP 37; O2SAT 97
== END 2021-04-19 11:20 | disposition home or self-care (01) | DRG 810 ==
LOC: ER 13:27 → ER IP 15:40 → MEDSURG 16:10
PROVIDERS: Admitting Provider Internal Medicine; Emergency Provider Emergency Medicine; Visit Provider Internal Medicine
DX: D70.9 Neutropenia, unspecified (principal); R50.81 Fever presenting with conditions classified elsewhere; O02.0 Blighted ovum and nonhydatidiform mole; Z92.21 Personal history of antineoplastic chemotherapy; Z79.899 Other long term (current) drug therapy
CPT/HCPCS: 36415; 71045; 76830; 76856; 80053; 81001; 83605; 84145; 84703; 85007; 85025; 86140; 87040; 87635; 96365; 96367; 96372; 99285; J0692; J1200; J1442; J2543; J3370; J7030; J7050